=== PATIENT | female | born 1995 | race Caucasian/White ===

== ENCOUNTER 2016-05-12 02:20 | Emergency (ER) | payer BC ==
[2016-05-12 03:32] LABS: Urine Bilirubin Negative (Negative); Urine Glucose Negative (Negative); Urine Nitrite Negative (Negative)
[2016-05-12 03:33] LABS: Hematocrit 35 % (35-47); Hemoglobin 11.8 g/dl (12.0-16.0); Mean Corpuscular HGB Conc 34 g/dl (31-36); Mean Corpuscular Hemoglobin 30 pg (27-31); Mean Corpuscular Volume 88 fL (80-97); Mean Platelet Volume 8 um3 (7.4-10.4); Red Blood Count 3.98 10^6/ul (4.0-5.4); Red Cell Distribution Width 14 % (10.5-15); White Blood Count 6.6 10^3/ul (3.5-10.8)
[2016-05-12 03:46] LABS: ALT 27 U/L (7-52); AST 34 U/L (13-39); Albumin 4.1 g/dL (3.2-5.2); Alkaline Phosphatase 76 U/L (34-104); Anion Gap 3 mmol/L (2-11); BUN/Creatinine Ratio 16.2 (8-20); Blood Urea Nitrogen 12 mg/dL (6-24); CO2 Carbon Dioxide 26 mmol/L (22-32); Calcium 9.1 mg/dL (8.6-10.3); Chloride 104 mmol/L (101-111); EGFR African American 128.7 (>60); EGFR Non-African American 100.1 (>60); Globulin 2.7 g/dL (2-4); Glucose 88 mg/dL (70-100); Potassium 3.6 mmol/L (3.5-5.0); Sodium 133 mmol/L (133-145); Total Protein 6.8 g/dL (6.4-8.9)
[2016-05-12 03:51] LABS: Benzodiazepine Urine Screen None Detected (None Detect)
[2016-05-12 04:07] LABS: Acetaminophen < 15 mcg/mL; Alcohol < 10 mg/dL (<10); Salicylate < 2.50 mg/dL (<30)
--- NOTE | 2016-05-12 06:13 | ED ---
Nitin Coburn Matthew, scribed for Dangelo Serna on 05/12/16 at 0313 . Altered Mental Status - HPI Summary HPI Summary: A 21 y/o female presents to the ED with altered mental status. The patient states that she's depressed and has occasional suicidal ideation, but with no plan. She denies hearing voice. Today, she slipped a note under her friends door expressing that she's been having suicidal thoughts and wanted to talk. The friend interrupted the note as a suicide note and called the police. - History Of Current Complaint Stated Complaint: 941 Hx Obtained From: Patient Hx From Patient Unobtainable Due To: Altered Mental Status Onset/Duration: Still Present Timing: Constant Severity Initially: Moderate Severity Currently: Moderate Associated Signs And Symptoms: Positive: Negative Has Suicidal: Thoughts - Allergies/Home Medications Allergies/Adverse Reactions: Allergies Allergy/AdvReac Type Severity Reaction Status Date / Time No Known Allergies Allergy Verified 05/12/16 03:09 PMH/Surg Hx/FS Hx/Imm Hx Endocrine/Hematology History: Denies: Hx Diabetes Psychiatric History: Reports: Hx Depression - Family History Known Family History: Positive: Unknown - The patient does not know - Social History Alcohol Use: Occasionally Hx Substance Use: No Substance Use Type: Reports: None Hx Tobacco Use: No Review of Systems Constitutional: Negative Eyes: Negative ENT: Negative Cardiovascular: Negative Respiratory: Negative Gastrointestinal: Negative Genitourinary: Negative Musculoskeletal: Negative Skin: Negative Neurological: Negative Psychological: Other - SI All Other Systems Reviewed And Are Negative: Yes Physical Exam Triage Information Reviewed: Yes Vital Signs On Initial Exam: Temp Pulse Resp BP Pulse Ox 96.2 F 63 16 102/58 98 05/12/16 02:20 05/12/16 02:20 05/12/16 02:20 05/12/16 02:20 05/12/16 02:20 Vital Signs Reviewed: Yes Appearance: Positive: Well-Appearing, No Pain Distress Skin: Positive: Warm, Skin Color Reflects Adequate Perfusion, Dry Head/Face: Positive: Normal Head/Face Inspection Eyes: Positive: EOMI, JOSE ENT: Positive: Normal ENT inspection Neck: Positive: Supple, Nontender Respiratory/Lung Sounds: Positive: Clear to Auscultation, Breath Sounds Present Cardiovascular: Positive: RRR, Pulses are Symmetrical in both Upper and Lower Extremities Abdomen Description: Positive: Nontender, Soft Bowel Sounds: Positive: Present Musculoskeletal: Positive: Normal, Strength/ROM Intact Neurological: Positive: Normal, Sensory/Motor Intact, Alert, Oriented to Person Place, Time Psychiatric: Positive: Affect/Mood Appropriate Diagnostics - Laboratory Result Diagrams: 05/12/16 03:19 05/12/16 03:19 Lab Statement: Any lab studies that have been ordered have been reviewed, and results considered in the medical decision making process. Altered Mental Statu Course/Dx - Course Assessment/Plan: The mental health unit recommends the patient be discharged home and follow-up with [facility]. - Diagnoses Discharge Diagnoses: Depression Discharge - Discharge Plan Condition: Stable Disposition: HOME Referrals: [facility] TORY More [Primary Care Provider] - The documentation as recorded by the Nitin alvarez Matthew accurately reflects the service I personally performed and the decisions made by Daphne hernandez Emmanuel.
[2016-05-12 06:28] VITALS: BP 97/46
== END 2016-05-12 06:35 | disposition home or self-care (01) ==
LOC: ED 02:20
DX: F32.9 Major depressive disorder, single episode, unspecified (principal)
CPT/HCPCS: 36415; 80053; 80307; 80320; 80329; 81003; 84443; 84702; 85025; 99283; G0480